=== PATIENT | female | born 1955 | race Caucasian/White ===

== ENCOUNTER 2019-04-18 07:13 | Emergency (ER) | payer OTHER ==
--- NOTE | 2019-04-18 07:30 | ED Physician Documentation ---
PD HPI NVD - Stated complaint Stated Complaint: VOMITING - Chief complaint Chief Complaint: Abd Pain - History obtained from History obtained from: Patient - History of Present Illness Timing - onset: How many days ago (2) Timing - duration: Days (2) Timing - details: Abrupt onset, Still present Associated symptoms: Abdominal pain (epigastric area), Dizzy (some lightheaded), Loss of appetite. No: Fever, Hematemesis, Melena Contributing factors: Alcohol use (She states she drank some homemade "moons eliot" and developed some nausea and vomiting soon after that. It apparently was home brewed alcohol. She drank somewhat heavily and states she does not drink every day or regularly. She was having nausea and vomiting since that time. She denies any hematemesis. She has a history of IBS so often has loose stool and states her diarrhea is only slightly more than usual. She denies melena in her stool.). No: Sick contact, Bad food Improved by: No: Vomiting Worsened by: Eating Similar symptoms before: Has not had sx before Recently seen: Not recently seen Review of Systems Constitutional: reports: Myalgias, Fatigue. denies: Fever, Chills Nose: denies: Rhinorrhea / runny nose, Congestion Throat: denies: Sore throat Respiratory: denies: Cough GI: reports: Abdominal Pain, Nausea, Vomiting. 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, Other - Present Medications Home Medications: Ambulatory Orders Medication Instructions Recorded Confirmed Atenolol 50 mg PO 04/11/13 04/11/13 Cyclobenzaprine [Flexeril] 10 04/11/13 04/11/13 Estradiol [Estrace] 0.5 mg PO 04/11/13 04/11/13 Gabapentin [Neurontin] 300 mg PO QID 04/11/13 04/11/13 Meloxicam 15 mg PO 04/11/13 04/11/13 Potassium Chloride [Micro-K] 10 meq PO 0800 04/11/13 04/11/13 Progesterone,Micronized 2.5 mg PO 04/11/13 04/11/13 [Progesterone] Zolmitriptan [Zomig] 5 mg PO 04/11/13 04/11/13 buPROPion [Wellbutrin Sr] 150 mg PO BID 04/11/13 04/11/13 hydroCHLOROthiazide [Hydrodiuril] 25 mg PO DAILY 04/11/13 04/11/13 Famotidine 20 mg PO DAILY #30 tablet 04/18/19 Hydrocodone/Acetaminophen [Deadwood 1 each PO Q6H PRN #15 tablet 04/18/19 5-325 Tablet] Ondansetron Odt [Zofran] 4 mg TL Q6H PRN #20 tablet 04/18/19 - Allergies Allergies/Adverse Reactions: Allergies Allergy/AdvReac Type Severity Reaction Status Date / Time No Known Drug Allergies Allergy Verified 04/11/13 11:13 PD ED PE NORMAL - Vitals Vital signs reviewed: Yes - General General: Alert and oriented X 3, Well developed/nourished - HEENT HEENT: PERRL (nonicteric), Pharynx benign - Neck Neck: Supple, no meningeal sign, No bony TTP, No adenopathy - Cardiac Cardiac: RRR, No murmur - Respiratory Respiratory: Clear bilaterally - Abdomen Abdomen: Soft, Non tender, Other (She is tender in the epigastric area with localized guarding but no percussion or rebound tenderness. The lower abdomen is nontender. There is no particular tenderness in the right upper quadrant area.) - Back Back: No CVA TTP - Derm Derm: Normal color, Warm and dry - Extremities Extremities: No tenderness to palpate, Normal ROM s pain - Neuro Neuro: Alert and oriented X 3, No motor deficit, Normal speech Results - Vitals Vitals: Vital Signs - 24 hr 04/18/19 04/18/19 04/18/19 07:26 08:26 08:43 Temperature 36.6 C Heart Rate 65 66 88 Respiratory 20 21 18 Rate Blood Pressure 132/102 H 204/93 H 164/73 H O2 Saturation 98 99 99 04/18/19 04/18/19 10:00 11:56 Temperature 37.1 C Heart Rate 66 69 Respiratory 16 17 Rate Blood Pressure 157/75 H 165/81 H O2 Saturation 94 97 Oxygen O2 Source [Without Activity] Room air O2 Source Room air - Labs Labs: Laboratory Tests 04/18/19 04/18/19 04/18/19 07:55 07:55 07:55 WBC 15.9 H RBC 4.72 Hgb 15.2 Hct 44.6 MCV 94.5 MCH 32.2 H MCHC 34.1 RDW 12.4 Plt Count 251 MPV 11.4 H Neut # (Auto) 13.7 H Lymph # (Auto) 1.4 L Ceiba # (Auto) 0.7 Eos # (Auto) 0.0 Baso # (Auto) 0.1 Absolute Nucleated RBC 0.00 Nucleated RBC % 0.0 Sodium 138 Potassium 3.6 Chloride 98 L Carbon Dioxide 20 L Anion Gap 20.0 H BUN 20 Creatinine 0.8 Estimated GFR (MDRD) 73 L Glucose 202 H Calcium 9.5 Magnesium 1.7 Total Bilirubin 1.5 H AST 37 ALT 35 Alkaline Phosphatase 45 Total Protein 7.7 Albumin 4.8 Globulin 2.9 Albumin/Globulin Ratio 1.7 Lipase 26 Serum Ketones NEGATIVE PD MEDICAL DECISION MAKING - ED course Complexity details: re-evaluated patient (Much improved after IV fluids and antiemetics and pain medicine. She was still having some epigastric pain. GI cocktail helped quite a bit as well. Her labs are reasonable. She is able to take orals. She was discharged home.), considered differential (Likely some alcoholic gastritis that has persisted. She denies regular alcohol use but did the other day. No history of pancreatitis. She is status post cholecystectomy. Can check labs to ensure there is no pancreatitis or liver abnormalities. Will check electrolytes as well. Presume some gastritis. She has normal mentation and is acting like gastritis and so I have a low suspicion for atypical alcohols.), d/w patient Departure - Departure Disposition: Home, Self Care Clinical Impression: Nausea and vomiting Qualifiers: Vomiting type: unspecified Vomiting Intractability: intractable Qualified Code(s): R11.2 - Nausea with vomiting, unspecified Acute gastritis Qualifiers: Gastritis type: unspecified gastritis Gastritis bleeding: without bleeding Qualified Code(s): K29.00 - Acute gastritis without bleeding Condition: Stable Record reviewed to determine appropriate education?: Yes Instructions: ED Gastritis Follow-Up: Sarmad Wong MD [Primary Care Provider] - Prescriptions: Famotidine 20 mg PO DAILY #30 tablet Hydrocodone/Acetaminophen [Deadwood 5-325 Tablet] 1 each PO Q6H PRN #15 tablet PRN Reason: Pain Ondansetron Odt [Zofran] 4 mg TL Q6H PRN #20 tablet PRN Reason: Nausea / Vomiting Comments: I presume your stomach was just irritated causing the vomiting which perpetuated the irritation. Hopefully the cycle of it is now better but there will still be some irritation of the stomach so be gentle with eating initially bland food and frequent fluids. Add famotidine acid reducing medicine for couple of weeks to allow continued healing. Ondansetron if needed for nausea. Add Tylenol or hydrocodone if needed for pain. Recheck if not consistently better over the next several days return sooner if worse again. Discharge Date/Time: 04/18/19 12:04
[2019-04-18] MEDS ORDERED: SODIUM CHLORIDE 0.9% 1,000 ML IV ONE ×2 (07:44→08:54)
[2019-04-18] MEDS ORDERED: ONDANSETRON 4 MG/2 ML VIAL IVP STA (07:44)
[2019-04-18] MEDS ORDERED: LORazepam 2 MG/ML VIAL IVP STA (07:44)
[2019-04-18] MEDS ORDERED: FAMOTIDINE 20 MG/2 ML VIAL IVP STA (07:44)
[2019-04-18 08:02] LABS: BASOPHILS # (AUTO) 0.1 10^3/uL (0.0-0.1); BASOPHILS % (AUTO) 0.4 %; HGB - HEMOGLOBIN 15.2 g/dL (12.0-16.0); LYMPHOCYTES # (AUTO) 1.4 10^3/uL (1.5-3.5); LYMPHOCYTES % (AUTO) 8.7 %; MEAN CORPUSCULAR HEMOGLOBIN 32.2 pg (27.0-31.0); MEAN CORPUSCULAR HGB CONC 34.1 g/dL (32.0-36.0); MEAN CORPUSCULAR VOLUME 94.5 fL (81.0-99.0); MEAN PLATELET VOLUME 11.4 fL (7.9-10.8); MONOCYTES # (AUTO) 0.7 10^3/uL (0.0-1.0); MONOCYTES % (AUTO) 4.4 %; NEUTROPHILS # (AUTO) 13.7 10^3/uL (1.5-6.6); NEUTROPHILS % (AUTO) 85.8 %; PLT - PLATELET COUNT 251 10^3/uL (130-450); RED BLOOD COUNT 4.72 10^6/uL (4.20-5.40); RED CELL DISTRIBUTION WIDTH 12.4 % (12.0-15.0); WHITE BLOOD COUNT 15.9 x10^3/uL (4.8-10.8)
[2019-04-18 08:17] LABS: ALBUMIN 4.8 g/dL (3.2-5.5); ALBUMIN/GLOBULIN RATIO 1.7 (1.0-2.2); BILIRUBIN,TOTAL 1.5 mg/dL (0.2-1.0); CALCIUM 9.5 mg/dL (8.5-10.3); CREATININE 0.8 mg/dL (0.4-1.0); MAGNESIUM 1.7 mg/dL (1.7-2.8); TOTAL PROTEIN 7.7 g/dL (6.7-8.2)
[2019-04-18] MEDS ORDERED: MAG HYDROX/AL HYDROX/SIMETH 30 ML UDC PO STA (09:26)
[2019-04-18] MEDS ORDERED: LIDOCAINE VISCOUS 2% 15 ML UDC MM STA (09:26)
[2019-04-18] MEDS ORDERED: HYDROmorphone 1 MG/ML CARPUJECT IVP STA (09:26)
[2019-04-18 11:57] VITALS: BP 165/81
== END 2019-04-18 12:04 | disposition home or self-care (01) ==
LOC: ED 07:13
DX: K29.00 Acute gastritis without bleeding (principal); I10 Essential (primary) hypertension
CPT/HCPCS: 36415; 80053; 82009; 83690; 83735; 85025; 96361; 96374; 96375; 99284; 99285; A9270; J1170; J2060

== ENCOUNTER 2023-06-02 20:54 | Emergency (ER) | payer MEDICARE, OTHER ==
--- NOTE | 2023-06-02 22:33 | CT Report ---
PROCEDURE: Head WO INDICATIONS: GLF head injury TECHNIQUE: Noncontrast 4.5 mm thick angled axial sections acquired from the foramen magnum to the vertex. For r adiation dose reduction, the following was used: automated exposure control, adjustment of mA and/or kV according to patient size. COMPARISON: None. FINDINGS: Image quality: Excellent. CSF spaces: Basal cisterns are patent. No extra-axial fluid collections. Ventricles are normal in size and shape. Brain: No midline shift. No intracranial masses or hemorrhage. Gomez-white matter interface is norm al. Skull and face: Calvarium and visualized facial bones are intact, without suspicious lesions. Sinuses: Visualized sinuses and mastoids are clear. IMPRESSION: No acute intracranial pathology. Reviewed by: Fran Vargas MD on 06/02/2023 10:31 PM PDT Approved by: Fran Vargas MD on 06/02/2023 10:31 PM PDT Station ID: [id number]
--- NOTE | 2023-06-02 22:34 | CT Report ---
PROCEDURE: Cervical Spine WO INDICATIONS: GLF, head injury TECHNIQUE: Noncontrast 3 mm thick sections acquired from the skull base to the T4 level. Sagittal and coronal r eformats were then constructed. For radiation dose reduction, the following was used: automated exp osure control, adjustment of mA and/or kV according to patient size. COMPARISON: None. FINDINGS: Image quality: Excellent. Bones: No fractures or dislocations. Visualized superior ribs are intact. C5-C7 anterior fusion pl ate. Soft tissues: Prevertebral soft tissues are normal in thickness. No paravertebral hematomas. No ap ical pneumothoraces. IMPRESSION: No acute trauma found. Prior C5-C7 anterior fusion plate. No sign of device loosening or disruption. Reviewed by: Fran Vargas MD on 06/02/2023 10:32 PM PDT Approved by: Fran Vargas MD on 06/02/2023 10:32 PM PDT Station ID: [id number]
[2023-06-03] MEDS: LIDOCAINE 1% 2 ML VIAL SUBQ STA (01:23)
[2023-06-03] MEDS: BUFFERED LIDOCAINE 10 ML SYRINGE SUBQ STA (01:23)
--- NOTE | 2023-06-03 01:48 | ED Physician Documentation ---
PD HPI HEAD INJURY - Stated complaint Stated Complaint: FALL/HEAD LAC - Chief complaint Chief Complaint: Laceration - History obtained from History obtained from: Patient, Family (husban) - History of Present Illness Mechanism of head injury: Fell Where head injury occurred: Home Timing - onset: Today Location of injury: Left, Front Quality of pain: Pain Associated symptoms: Neck pain. No: LOC, AMS, Amnesia, Nausea / vomiting, Paresthesias, Seizures, Ear drainage, Nasal drainage Symptoms improve with: Rest Symptoms worsen with: Palpation, Movement Contributing factors: No: Anticoagulated, Intoxicated Similar symptoms before: Diagnosis (laceration) Recently seen: Not recently seen - Additional information Additional information: Gretchen Norwood is a 67-year-old female who was taking the garbage out in her home when she tripped in her home and fell against the fireplace. She lacerated the right side of her forehead she was not knocked unconscious she does have a headache and she has some pain in her neck as well. She presents to the emerged department now with her for suturing. Review of Systems Constitutional: denies: Fever Eyes: denies: Decreased vision Ears: denies: Ear pain Nose: denies: Congestion Throat: denies: Sore throat Cardiac: denies: Chest pain / pressure, Palpitations Respiratory: denies: Dyspnea GI: denies: Abdominal Pain, Nausea, Vomiting, Diarrhea : denies: Dysuria, Frequency Skin: reports: Laceration (s). denies: Rash Musculoskeletal: reports: Neck pain. 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 - Present Medications Home Medications: Ambulatory Orders Medication Instructions Recorded Confirmed Atenolol [Tenormin] 50 mg PO DAILY 06/02/23 06/02/23 Dicyclomine [Bentyl] 10 mg PO PRN PRN 06/02/23 06/02/23 Pantoprazole [Protonix] 40 mg PO DAILY 06/02/23 06/02/23 Sertraline [Zoloft] 50 mg PO DAILY 06/02/23 06/02/23 lisinopriL [Lisinopril] 20 mg PO DAILY 06/02/23 06/02/23 - Allergies Allergies/Adverse Reactions: Allergies Allergy/AdvReac Type Severity Reaction Status Date / Time No Known Drug Allergies Allergy Verified 06/02/23 21:11 - Social History Does the pt smoke?: No Smoking Status: Former smoker Does the pt drink ETOH?: Yes Does the pt have substance abuse?: No PD ED PE NORMAL - Vitals Vital signs reviewed: Yes (hypertensive) - General General: Alert and oriented X 3, No acute distress, Well developed/nourished - HEENT HEENT: PERRL, EOMI, Other (4 cm laceration to the right forehead at the hairline. No involvement of deeper structures no foreign material in the wou nd.) - Neck Neck: Supple, no meningeal sign, Other (Mild point tenderness at the mid cervical spine with normal movement of the cervical spine.) - Respiratory Respiratory: No respiratory distress - Derm Derm: Normal color, Warm and dry, No rash - Extremities Extremities: No deformity, No edema - Neuro Neuro: Alert and oriented X 3, study lead 2-12 intact, No motor deficit, No sensory deficit, Normal speech Eye Opening: Spontaneous Motor: Obeys Commands Verbal: Oriented GCS Score: 15 - Psych Psych: Normal mood, Normal affect Results - Vitals Vitals: Vital Signs - 24 hr 06/02/23 21:05 Heart Rate 65 Respiratory 16 Rate Blood Pressure 161/87 H O2 Saturation 96 Oxygen O2 Source [Without Activity] Room air O2 Source Room air - Rads (name of study) CT head Relevant Findings:: Prelim report reviewed (Impression: No acute intracranial pathology.), EMP independent interpretation of test cervical spine Relevant Findings:: Prelim report reviewed (Impression: No acute trauma found. Prior C5 C7 anterior fusion plate. No sign of evidence of device loosening or disruption.), EMP independent interpretation of test Procedures - Laceration (location) forehead Length in cm: 4 Wound type: Linear, Into subcut fat, Clean Neurovascular status: Sensory intact, Motor intact, Vascular intact Anesthesia: Lidocaine 1% Wound preparation: Hibiclens, Irrigated copiously NS, Wound explored, To the base Skin layer closure: Nylon, Interrupted, Size #-0 - enter number (5-0), Sutures - enter # (8) Other: Patient tolerated well, No complications, Neurovascular intact, Dressing applied, Tetanus booster given PD Medical Decision Making - ED course Complexity details: considered differential, d/w patient, d/w family ED course: Gretchen Uriarte is a 67-year-old female who had a fall in her house this evening and lacerated her forehead near the hairline. She did not have loss of consciousness with this incident she did have a headache and neck pain CT of the head and neck were without fracture or hemorrhage. The wound was cleansed anesthetized and closed. Departure - Departure Disposition: 01 Home, Self Care Clinical Impression: Facial laceration Qualifiers: Encounter type: initial encounter Qualified Code(s): S01.81XA - Laceration without foreign body of other part of head, initial encounter Concussion Qualifiers: Encounter type: initial encounter Loss of consciousness presence/duration: without LOC Qualified Code(s): S06.0X0A - Concussion without loss of consciousness, initial encounter Condition: Stable Instructions: ED Laceration Facial Sutr Tape, ED Concussion Follow-Up: Sarmad Wong MD [Primary Care Provider] - Comments: Gretchen, you will need to have these sutures removed in about 5 days. Follow-up with your primary care doctor.
[2023-06-03] MEDS: TETANUS/DIPHTHERIA/PERTUSSIS 0.5 ML SYRINGE IM ONE (01:58)
[2023-06-03 02:09] VITALS: BP 150/88; O2SAT 97
== END 2023-06-03 02:02 | disposition home or self-care (01) ==
LOC: ED 20:54
DX: S01.81XA Laceration without foreign body of other part of head, initial encounter (principal); S06.0X0A Concussion without loss of consciousness, initial encounter; W01.198A Fall on same level from slipping, tripping and stumbling with subsequent striking against other object, initial encounter; Y93.E9 Activity, other interior property and clothing maintenance; Y92.008 Other place in unspecified non-institutional (private) residence as the place of occurrence of the external cause; I10 Essential (primary) hypertension; M79.7 Fibromyalgia; Z79.899 Other long term (current) drug therapy; Z23 Encounter for immunization
CPT/HCPCS: 12013; 90471; 99283; 99284